=== PATIENT | male | born 1990 | race Caucasian/White ===

== ENCOUNTER 2018-01-15 22:32 | Emergency (ER) | payer BC ==
[~2018-01-15] VITALS: Ht 177.8 cm; Wt 69.8 kg
[~2018-01-15 22:32] MED LIST: NOHOMEMEDS
[2018-01-16 02:09] LABS: HEMATOCRIT 36.7 % (38.0-50.0); HEMOGLOBIN 12.6 G/DL (12.5-16.6); MCH 29.5 PG (29.0-34.0); MCHC 34.3 G/DL (30.0-36.0); MCV 85.9 FL (86-99); PLATELET COUNT 288 K/uL (156-360); RBC DIS.WIDTH-SD 37.9 % (39-53); RED BLOOD COUNT 4.27 M/uL (4.00-5.50); WHITE BLOOD COUNT 11.5 K/uL (4.1-10.2)
[2018-01-16 02:17] LABS: ALBUMIN 4.2 g/dL (3.2-4.8)
[2018-01-16 02:18] LABS: CHLORIDE 98 mEq/L (99-109); SODIUM 139 mEq/L (136-147)
[2018-01-16 02:20] LABS: GLUCOSE 108 mg/dL (70-99); TOTAL PROTEIN 7.8 g/dL (6.4-8.3)
[2018-01-16 02:22] LABS: TOTAL BILIRUBIN 0.4 mg/dL (0.0-1.0)
[2018-01-16 02:23] LABS: ALKALINE PHOSPHATASE 141 IU/L (3-129)
[2018-01-16 02:24] LABS: CREATININE 0.8 mg/dL (0.6-1.3); GFR ESTIMATE (CALCULATED) > 59 mL/min/ (58.99-99999)
[2018-01-16 02:25] LABS: AST (GOT) 22 IU/L (2-34); UREA NITROGEN (BUN) 13 mg/dL (9-23)
[2018-01-16 02:26] LABS: ALT (GPT) 26 IU/L (3-49)
[2018-01-16 02:27] LABS: LIPASE 8 U/L (1.0-51.0)
[2018-01-16 04:44] VITALS: BP 114/66
== END 2018-01-16 04:44 | disposition home or self-care (01) ==
LOC: EME 22:32
PROVIDERS: Emergency Medicine
DX: L03.114 Cellulitis of left upper limb (principal); I80.8 Phlebitis and thrombophlebitis of other sites; Z87.898 Personal history of other specified conditions; F11.20 Opioid dependence, uncomplicated; F41.9 Anxiety disorder, unspecified; F32.9 Major depressive disorder, single episode, unspecified; F17.200 Nicotine dependence, unspecified, uncomplicated
CPT/HCPCS: 80053; 83605; 83690; 85027; 87040; 93971; 99281; 99285; J3370; J7030